=== PATIENT | female | born 1965 | race Caucasian/White ===

== ENCOUNTER → 2016-06-07 | Outpatient (CLI) | payer OTHER ==
[~2016-06-07] MED LIST: FISH OIL 1,0001 EAC5 PO; FISH OIL 1,2001 EAC4 PO; NOLVADEX10 MG PO; NOLVADEX20 MG PO; ONE-A-DAY WOMENS PO; OS-CAL ULTRA T1 EACH PO; PROTONIX40 M2 PO; WOMEN'S DAILY1 EAC2 PO; XANAX 0.5 MG0.5 MG PO
== END ==
LOC: ULTRA 12:06
DX: C50.419 Malignant neoplasm of upper-outer quadrant of unspecified female breast (principal); M79.89 Other specified soft tissue disorders